=== PATIENT | male | born 1970 | race Caucasian/White ===

== ENCOUNTER → 2021-11-03 | Outpatient (REF) | payer OTHER ==
[2021-11-03 19:17] LABS: CREATININE, URINE 36.3 MG/DL; MALB URINE SIEMENS 7.1 MG/L; MAU/CREAT RATIO 19.5 MCG/MG (0.0-30.0)
== END ==
LOC: M LAB REF 16:54
PROVIDERS: ATTEND Nurse Practitioner Family
DX: E11.65 Type 2 diabetes mellitus with hyperglycemia (principal)

== ENCOUNTER → 2023-08-25 | Outpatient (REF) | LOC: M PLAIMG 14:11 | PROVIDERS: ATTEND Internal Medicine | DX: R52 Pain, unspecified (principal) ==

== ENCOUNTER → 2023-10-06 | Outpatient (REF) | LOC: M PLAIMG 11:03 | PROVIDERS: ATTEND Internal Medicine | DX: M25.512 Pain in left shoulder (principal); Z87.81 Personal history of (healed) traumatic fracture ==